=== PATIENT | male | born 2000 | race Two or more races ===

== ENCOUNTER 2020-06-15 02:28 | Emergency (ER) | payer SELFPAY ==
[~2020-06-15] VITALS: Ht 162.6 cm; Wt 60.0 kg
--- NOTE | 2020-06-15 02:47 | NUR ---
19 YO PT BIB [facility] DUE TO INCREASED SOB X4 DAY. PT IS MICRONESIAN SPEAKING. PT STATES HE WAS POSITIVE FOR COVID 3 WEEKS AGO AND ROOMATE ALSO HAS IT. SYMPTOMS GOT BETTER UNTIL 4 DAYS AGO. PT SITTING UP IN GURNEY WITH SOB. ERP AT BEDSIDE. IV STARTED BY EMS
[2020-06-15] MEDS ORDERED: LORazepam 1MG TABLET ONE (02:51)
[2020-06-15] MEDS ORDERED: LORazepam 1MG TABLET PO ONE (03:00)
[2020-06-15 03:27] LABS: BASOPHILS % (AUTO) 1 % (0-1); EOSINOPHILS % (AUTO) 2 % (1-7); LYMPHOCYTES % (AUTO) 38 % (22-44); MEAN CORPUSCULAR HEMOGLOBIN 30.6 pg (27.5-34.5); MEAN PLATELET VOLUME 7.1 fL (7.4-10.4); MONOCYTES % (AUTO) 9 % (2-9); NEUTROPHILS % (AUTO) 51 % (42-75); PLATELET COUNT 325 x10^3/uL (130-400); RED BLOOD COUNT 5.69 x10^6/uL (4.38-5.82); RED CELL DISTRIBUTION WIDTH 12.5 % (9.4-14.8)
[2020-06-15 03:29] LABS: MD NO
[2020-06-15 03:35] LABS: ALANINE AMINOTRANSFERASE 49 U/L (12-78); ALBUMIN 4.1 g/dL (3.4-5.0); ANION GAP 8 mmol/L (5-15); CALCIUM 9.2 mg/dL (8.5-10.1); CHLORIDE 106 mmol/L (98-107); CREATININE 0.97 mg/dL (0.7-1.3)
[2020-06-15 03:37] LABS: ALKALINE PHOSPHATASE 83 U/L (45-117); BILIRUBIN,TOTAL 0.4 mg/dL (0.2-1.0); TOTAL PROTEIN 7.1 g/dL (6.4-8.2)
--- NOTE | 2020-06-15 04:09 | NUR ---
PT STATES HE FEELS BETTER AFTER MEDICATION. STILL SOB. RESTING ON GURNEY. DENIES ANY NEEDS
[2020-06-15 04:44] VITALS: BP 93/52
--- NOTE | 2020-06-15 05:06 | NUR ---
PT DC HOME. AMBULATORY. IV TAKEN OUT, TIP INTACT
== END 2020-06-15 05:08 | disposition home or self-care (01) ==
LOC: ED 04:57
DX: F41.1 Generalized anxiety disorder (principal); R06.4 Hyperventilation; R94.31 Abnormal electrocardiogram [ECG] [EKG]
CPT/HCPCS: 36415; 71045; 80053; 85025; 85379; 93005; 99285